=== PATIENT | male | born 1965 | race Caucasian/White ===

== ENCOUNTER 2018-04-08 19:50 | Emergency (ER) | payer BC, MEDICAID ==
[2018-04-08 22:11] LABS: HAAIG REFLEX REFLEX FILED
[2018-04-08 23:12] LABS: HEPATITIS B SURFACE ANTIGEN NEGATIVE (NEGATIVE)
[2018-04-08 23:30] LABS: HEPATITIS C VIRAL ANTIBODY NEGATIVE (NEGATIVE); HIV 1&2 ANTIBODY NEGATIVE (NEGATIVE)
[2018-04-09 04:50] LABS: HEPATITIS B CORE ANTIBODY NEGATIVE (NEGATIVE)
[2018-04-09 15:38] LABS: RAPID PLASMA REAGIN NONREACTIVE (NR)
== END 2018-04-08 22:07 | disposition home or self-care (01) ==
LOC: FTE 19:50
DX: Z11.3 Encounter for screening for infections with a predominantly sexual mode of transmission (principal); F17.210 Nicotine dependence, cigarettes, uncomplicated
CPT/HCPCS: 86592; 86703; 86704; 86709; 86803; 87340; 87591; 99283

== ENCOUNTER 2018-05-03 17:46 | Emergency (ER) | payer BC ==
[2018-05-03] MEDS: CHLORDIAZEPOXIDE 25 MG CAP PO (23:27)
== END 2018-05-03 23:30 | disposition home or self-care (01) ==
LOC: E/R 23:30
DX: F10.129 Alcohol abuse with intoxication, unspecified (principal); F17.210 Nicotine dependence, cigarettes, uncomplicated
CPT/HCPCS: 99284; Z7502

== ENCOUNTER 2018-06-18 21:13 | Inpatient (IN) | payer BC ==
[2018-06-18] MEDS: SOD CHLORIDE 0.9% 1,000 ML IV (21:35)
[2018-06-18] MEDS: ONDANSETRON 4 MG INJ IV (21:39)
[2018-06-18 21:41] LABS: ADD MAN DIFF? NO
[2018-06-18 21:43] LABS: WHITE BLOOD COUNT 9.8 10^3/ul (4.8-10.8)
[2018-06-18 21:43] LABS: BASOPHIL # 0.1 10^3/ul (0.0-0.1); BASOPHILS % 0.5 % (0.0-2.0); EOSINOPHILS # 0.1 10^3/ul (0.0-0.5); EOSINOPHILS % 0.9 % (0.0-7.0); HEMATOCRIT 34.5 % (42.0-52.0); HEMOGLOBIN 11.7 g/dl (14.0-18.0); LYMPHOCYTES # 2.2 10^3/ul (0.8-2.9); LYMPHOCYTES % 22.1 % (15.0-51.0); MEAN CORPUSCULAR HEMOGLOBIN 32.1 pg (29.0-33.0); MEAN CORPUSCULAR HGB CONC 33.9 g/dl (32.0-37.0); MEAN CORPUSCULAR VOLUME 94.8 fl (82.0-101.0); MEAN PLATELET VOLUME 9.7 fl (7.4-10.4); MONOCYTES % 10.6 % (0.0-11.0); NEUTROPHIL # 6.4 10^3/ul (1.6-7.5); NEUTROPHILS % 65.5 % (39.0-77.0); PLATELET COUNT 355 10^3/UL (140-415); RED BLOOD COUNT 3.64 10^6/ul (4.70-6.10); RED CELL DISTRIBUTION WIDTH 14.3 % (11.5-14.5)
[2018-06-18 21:51] LABS: ADD UMIC YES; UR ASCORBIC ACID 40 mg/dL (NEGATIVE); UR BACTERIA FEW /HPF (NONE SEEN); UR BILIRUBIN (Dip) NEGATIVE (NEGATIVE); UR BLOOD (Dip) NEGATIVE (NEGATIVE); UR CALCIUM OXALATE CRYSTAL MODERATE /HPF (NONE SEEN); UR CLARITY SLIGHTLY CLOUDY (CLEAR); UR COLOR AMBER (YELLOW); UR GLUCOSE (Dip) NEGATIVE (NEGATIVE); UR HYALINE CAST FEW /HPF (NONE SEEN); UR KETONES (Dip) TRACE mg/dL (NEGATIVE); UR LEUKOCYTE ESTERASE (Dip) TRACE Leu/ul (NEGATIVE); UR MUCUS MANY /HPF (NONE SEEN); UR NITRITE (Dip) NEGATIVE (NEGATIVE); UR RBC 1 /HPF (0-5); UR SPECIFIC GRAVITY (Dip) 1.029 (1.003-1.030); UR TOTAL PROTEIN (Dip) NEGATIVE (NEGATIVE); UR UROBILINOGEN (Dip) 1+ mg/dL (NEGATIVE); UR WBC 9 /HPF (0-5)
[2018-06-18 22:01] LABS: AMPHETAMINE/METHAMPHETAMINE Negative (NEGATIVE); BARBITURATES Negative (NEGATIVE); CANNABINOIDS Negative (NEGATIVE); COCAINE Negative (NEGATIVE); OPIATES Negative (NEGATIVE)
[2018-06-18 22:02] LABS: ALANINE AMINOTRANSFERASE 20 IU/L (13-69); ALBUMIN 3.7 g/dl (3.3-4.9); ALKALINE PHOSPHATASE 36 IU/L (42-121); ANION GAP 11 (8-16); ASPARTATE AMINO TRANSFERASE 20 IU/L (15-46); BILIRUBIN,INDIRECT 0.1 mg/dl (0-1.1); BILIRUBIN,TOTAL 0.1 mg/dl (0.2-1.3); BLOOD UREA NITROGEN 17 mg/dl (7-20); CALCIUM 9.2 mg/dl (8.4-10.2); CARBON DIOXIDE 22 mmol/L (21-31); CHLORIDE 112 mmol/L (97-110); CREATININE 0.89 mg/dl (0.61-1.24); GLUCOSE 123 mg/dl (70-220); LIPASE 83 U/L (23-300); POTASSIUM 3.3 mmol/L (3.5-5.1); SODIUM 142 mmol/L (135-144)
[2018-06-18 22:04] LABS: BENZODIAZEPINES Positive (NEGATIVE)
[2018-06-18 22:12] LABS: TROPONIN-I < 0.012 ng/ml (0.000-0.120)
[2018-06-19] MEDS ORDERED: ONDANSETRON 4 MG INJ IV (02:30)
[2018-06-19] MEDS ORDERED: ACETAMINOPHEN 325 MG TAB PO (02:30)
[2018-06-19] MEDS: SOD CHLORIDE 0.9% 1,000 ML IV ×3 (03:05→22:30)
[2018-06-19] MEDS: POTASSIUM CHLORIDE (SR) 20 MEQ TAB PO (03:05)
[2018-06-19 05:46] LABS: ANION GAP 9 (8-16); BLOOD UREA NITROGEN 16 mg/dl (7-20); CALCIUM 8.9 mg/dl (8.4-10.2); CARBON DIOXIDE 24 mmol/L (21-31); CHLORIDE 112 mmol/L (97-110); CREATININE 0.78 mg/dl (0.61-1.24); GLUCOSE 88 mg/dl (70-220); POTASSIUM 4.1 mmol/L (3.5-5.1); SODIUM 141 mmol/L (135-144)
[2018-06-19] MEDS: PANTOPRAZOLE 40 MG INJ IV (07:06)
[2018-06-19 14:53] LABS: MAGNESIUM 1.6 mg/dl (1.7-2.5)
[2018-06-19 15:24] LABS: THYROID STIMULATING HORMONE 0.524 MIU/L (0.465-4.680)
[2018-06-19 15:48] LABS: IONIZED CALCIUM 1.3 mmol/L (1.1-1.4)
[2018-06-19] MEDS: NICOTINE (21 MG/24 HR) PATCH TRANSDERM (16:51)
[2018-06-19] MEDS: MAGNESIUM SULFATE 2 GM/50 ML 50 ML IVPB (16:51)
[2018-06-19 18:53] LABS: TROPONIN-I < 0.012 ng/ml (0.000-0.120)
[2018-06-19] MEDS: ZOLPIDEM 5 MG TAB PO (22:40)
[2018-06-20 01:27] LABS: TROPONIN-I < 0.012 ng/ml (0.000-0.120)
[2018-06-20] MEDS: PANTOPRAZOLE 40 MG INJ IV (06:52)
[2018-06-20] MEDS: SOD CHLORIDE 0.9% 1,000 ML IV ×2 (06:53→08:30)
[2018-06-20 07:09] LABS: TROPONIN-I < 0.012 ng/ml (0.000-0.120)
[2018-06-20] MEDS: MULTIVITAMINS 10 ML, THIAMINE 100 MG, FOLIC ACID 1 MG in SOD CHLORIDE 0.9% 1,000 ML IVPB (08:16)
[2018-06-20] MEDS: NICOTINE (21 MG/24 HR) PATCH TRANSDERM (08:17)
== END 2018-06-20 18:05 | disposition home or self-care (01) | DRG 917 ==
LOC: E/R 21:13 → 6WM 22:32
PROVIDERS: Internal Medicine
DX: T42.4X1A Poisoning by benzodiazepines, accidental (unintentional), initial encounter (principal); G92 Toxic encephalopathy; F10.239 Alcohol dependence with withdrawal, unspecified; I45.81 Long QT syndrome; R00.1 Bradycardia, unspecified; I95.9 Hypotension, unspecified; E86.0 Dehydration; E87.6 Hypokalemia; F17.210 Nicotine dependence, cigarettes, uncomplicated; M54.5 Low back pain; R41.0 Disorientation, unspecified; S80.00XA Contusion of unspecified knee, initial encounter; W19.XXXA Unspecified fall, initial encounter
CPT/HCPCS: 36415; 70450; 71045; 72100; 80048; 80053; 80307; 81001; 82330; 82962; 83690; 83735; 84443; 84484; 85025; 93005; 93306; 96374; 99291-25